=== PATIENT | male | born 1950 | race Caucasian/White ===

== ENCOUNTER → 2016-08-13 | Outpatient (CLI) | payer OTHER ==
[2016-08-13 18:42] LABS: ALT/SGPT 22 U/L (12-78); BLOOD UREA NITROGEN 37 mg/dl (7-18); BUN/CREATININE RATIO 16.9 (10-20); CARBON DIOXIDE 29 mmol/L (21-32); CHLORIDE 105 mmol/L (98-107); GLUCOSE 79 mg/dl (70-99); POTASSIUM 3.6 mmol/L (3.5-5.1); SODIUM 140 mmol/L (136-145)
== END | disposition home or self-care (01) ==
LOC: C.LABMFLN 14:28
PROVIDERS: ATTEND Family Medicine
DX: Z11.59 Encounter for screening for other viral diseases (principal); I12.9 Hypertensive chronic kidney disease with stage 1 through stage 4 chronic kidney disease, or unspecified chronic kidney disease; N18.9 Chronic kidney disease, unspecified; E78.5 Hyperlipidemia, unspecified; Z12.5 Encounter for screening for malignant neoplasm of prostate

== ENCOUNTER → 2017-06-14 | Outpatient (CLI) | payer OTHER, BC ==
[2017-06-14 13:20] LABS: ALT/SGPT 22 U/L (12-78); BLOOD UREA NITROGEN 42 mg/dl (7-18); CALCIUM 8.9 mg/dl (8.5-10.1); CARBON DIOXIDE 29 mmol/L (21-32); CHOLESTEROL 87 mg/dl (0-200); CREATININE 2.77 mg/dl (0.60-1.40); GLUCOSE 98 mg/dl (70-99); POTASSIUM 3.9 mmol/L (3.5-5.1); SODIUM 142 mmol/L (136-145)
[2017-06-14 13:23] LABS: LDL CHOLESTEROL (DIRECT) 54 mg/dl
== END | disposition home or self-care (01) ==
LOC: C.LABMFLN 08:57
PROVIDERS: ATTEND Family Medicine
DX: Z00.00 Encounter for general adult medical examination without abnormal findings (principal); I12.9 Hypertensive chronic kidney disease with stage 1 through stage 4 chronic kidney disease, or unspecified chronic kidney disease; N18.9 Chronic kidney disease, unspecified; E78.5 Hyperlipidemia, unspecified

== ENCOUNTER → 2017-06-24 | Outpatient (CLI) | payer OTHER, BC ==
[2017-06-24 14:30] LABS: HEMATOCRIT 46.9 % (42-52); HEMOGLOBIN 16.2 g/dL (14.0-18.0); MEAN CELL VOLUME 92.1 fL (80-100); MEAN CORPUSCULAR HEMOGLOBIN 31.8 pg (25-34); MEAN CORPUSCULAR HGB CONC 34.5 g/dl (32-36); MEAN PLATELET VOLUME 12.1 fL (7.4-10.4); PLATELET COUNT 178 K/uL (130-400); RED CELL DISTRIBUTION WIDTH CV 12.1 % (11.5-14.5); RED CELL DISTRIBUTION WIDTH SD 40.8 fL (36.4-46.3); WHITE BLOOD COUNT 7.73 K/uL (4.8-10.8)
[2017-06-24 14:58] LABS: BLOOD UREA NITROGEN 43 mg/dl (7-18); CALCIUM 9.2 mg/dl (8.5-10.1); CARBON DIOXIDE 30 mmol/L (21-32); GLUCOSE 82 mg/dl (70-99); POTASSIUM 3.9 mmol/L (3.5-5.1); SODIUM 141 mmol/L (136-145)
[2017-06-24 15:02] LABS: PHOSPHORUS 3.3 mg/dl (2.5-4.9); TRANSFERRIN 274 mg/dl (200-360)
== END | disposition home or self-care (01) ==
LOC: C.LAB1850 13:38
PROVIDERS: ATTEND Internal Medicine Nephrology
DX: I12.9 Hypertensive chronic kidney disease with stage 1 through stage 4 chronic kidney disease, or unspecified chronic kidney disease (principal); E55.9 Vitamin D deficiency, unspecified; D63.1 Anemia in chronic kidney disease; N18.9 Chronic kidney disease, unspecified

== ENCOUNTER → 2017-06-26 | Outpatient (CLI) | payer OTHER, BC ==
--- NOTE | 2017-06-26 12:24 | DIAGNOSTIC IMAGING REPORT ---
(RENAL)RETROPERITON COMP HISTORY: Flank pain pain COMPARISON: None. FINDINGS: Right kidney: Maximum dimension 13.8 cm. Cortical scarring bilaterally. Several cysts largest on the right measuring 1.5 cm. Left kidney: Maximum dimension 14.1 cm. Cortical scarring. Multiple cortical cysts the largest of which measures 2.8 cm. Bladder: No bladder wall thickening. The bilateral ureteral jets were identified. IMPRESSION: 1. Cortical scarring bilaterally with no evidence for hydronephrosis. 2. Small bilateral renal cysts. The above report was generated using voice recognition software. It may contain grammatical, syntax or spelling errors. Electronically signed by: Arvin Escobar M.D. 06/26/2017 12:23 PM Dictated Date/Time: 06/26/2017 12:21 PM
== END | disposition home or self-care (01) ==
LOC: C.ULTR 11:34
PROVIDERS: ATTEND Internal Medicine Nephrology
DX: Q61.02 Congenital multiple renal cysts (principal); N28.89 Other specified disorders of kidney and ureter; N17.9 Acute kidney failure, unspecified